=== PATIENT | male | born 2000 ===

== ENCOUNTER 2020-10-20 13:58 | Emergency (ER) | payer SELFPAY | END 2020-10-20 14:44 | disposition home or self-care (01) | LOC: ERS 13:58 | DX: S60.562A Insect bite (nonvenomous) of left hand, initial encounter (principal); S61.432A Puncture wound without foreign body of left hand, initial encounter; W57.XXXA Bitten or stung by nonvenomous insect and other nonvenomous arthropods, initial encounter | CPT/HCPCS: 99283 ==